=== PATIENT | male | born 1955 | race Caucasian/White ===

== ENCOUNTER 2016-06-18 18:22 | Inpatient (IN) | payer OTHER ==
[~2016-06-18] VITALS: Ht 177.8 cm; Wt 77.2 kg
[2016-06-18 18:45] VITALS: BP 116/87
[2016-06-18 20:00] VITALS: BP 114/74
[2016-06-18] MEDS ORDERED: HEPARIN 5,000 UNITS/ML, 1ML IV ONE (21:00)
[2016-06-18] MEDS ORDERED: WARFARIN 5 MG TABLET PO-COUM ONE (21:00)
[2016-06-18 21:51] LABS: BLOOD UREA NITROGEN 8 mg/dL (7-18)
[2016-06-18 21:56] LABS: IS PT STATUS REG ER OR PRE ER? NO
[2016-06-18 22:14] LABS: ANTI-Xa-UNFRACTIONATED HEP 0.15 IU/mL (0.30-0.70)
[2016-06-18] MEDS: HEPARIN 25,000 UNITS/500ML PMX 500 ML IV SCH (22:48)
[2016-06-19] MEDS: ZOLPIDEM 5MG TABLET PO PRN ×2 (00:03→21:34)
[2016-06-19 02:00] VITALS: BP 110/72
[2016-06-19 05:53] LABS: BLOOD UREA NITROGEN 9 mg/dL (7-18)
[2016-06-19] MEDS ORDERED: APIX5TAB PO (07:38)
[2016-06-19 08:11] VITALS: BP 122/55
[2016-06-19] MEDS: HEPARIN 25,000 UNITS/500ML PMX 500 ML IV SCH ×2 (10:35→22:17)
[2016-06-19] MEDS ORDERED: PNEUMOCOCCAL 23 VACCINE IM-VACC ONE (11:00)
[2016-06-19 14:51] VITALS: BP 110/68
[2016-06-19] MEDS ORDERED: WARFARIN 5 MG TABLET PO-COUM SCH (18:00)
[2016-06-19 19:39] VITALS: BP 102/64
[2016-06-19] MEDS: HYDROcodone/APAP 5/325 TABLET PO PRN (21:34)
[2016-06-20 00:59] VITALS: BP 97/61
[2016-06-20 06:45] VITALS: BP 96/58
[2016-06-20] MEDS ORDERED: OMNIPAQUE 350 MG/ML, 100ML BOTTLE ONE (11:11)
[2016-06-20] MEDS: HEPARIN 25,000 UNITS/500ML PMX 500 ML IV SCH (12:08)
[2016-06-20 12:55] VITALS: BP 111/71
[2016-06-20] MEDS ORDERED: WARFARIN 10 MG TABLET PO-COUM ONE (18:00)
[2016-06-20 19:53] VITALS: BP 116/78
[2016-06-20] MEDS: HYDROcodone/APAP 5/325 TABLET PO PRN (21:20)
[2016-06-20] MEDS: ZOLPIDEM 5MG TABLET PO PRN (21:20)
[2016-06-21] MEDS: HEPARIN 25,000 UNITS/500ML PMX 500 ML IV SCH ×2 (01:04→15:07)
[2016-06-21 01:25] VITALS: BP 95/55
[2016-06-21 06:39] LABS: BLOOD UREA NITROGEN 7 mg/dL (7-18)
[2016-06-21 07:30] VITALS: BP 107/69
[2016-06-21 15:44] VITALS: BP 117/73
[2016-06-21] MEDS ORDERED: WARFARIN 10 MG TABLET PO-COUM ONE (18:00)
[2016-06-21 20:00] VITALS: BP 120/77
[2016-06-21] MEDS: ZOLPIDEM 5MG TABLET PO PRN (20:58)
[2016-06-21] MEDS: HYDROcodone/APAP 5/325 TABLET PO PRN (21:01)
[2016-06-22] MEDS: HEPARIN 25,000 UNITS/500ML PMX 500 ML IV SCH ×2 (02:33→14:50)
[2016-06-22 03:32] VITALS: BP 108/63
[2016-06-22 07:45] VITALS: BP 116/77
[2016-06-22 13:57] VITALS: BP 123/80
[2016-06-22] MEDS ORDERED: WARFARIN 10 MG TABLET PO-COUM ONE (18:00)
[2016-06-22 20:10] VITALS: BP 106/68
[2016-06-22] MEDS: ZOLPIDEM 5MG TABLET PO PRN (21:11)
[2016-06-22] MEDS: HYDROcodone/APAP 5/325 TABLET PO PRN (21:11)
[2016-06-23 01:07] VITALS: BP 101/63
[2016-06-23] MEDS: HEPARIN 25,000 UNITS/500ML PMX 500 ML IV SCH (02:53)
[2016-06-23 07:07] VITALS: BP 107/70
[2016-06-23] MEDS ORDERED: HEPARIN 25,000 UNITS/500ML PMX 500 ML IV SCH (11:20)
[2016-06-23] MEDS ORDERED: WARFARIN 7.5 MG TABLET PO-COUM ONE (13:00)
[2016-06-23 14:15] VITALS: BP 126/79
[2016-06-23 20:00] VITALS: BP 122/79
[2016-06-23] MEDS: HYDROcodone/APAP 5/325 TABLET PO PRN (21:53)
[2016-06-23] MEDS: ZOLPIDEM 5MG TABLET PO PRN (21:54)
[2016-06-24 02:00] VITALS: BP 92/55
[2016-06-24 07:32] VITALS: BP 110/73
[2016-06-24 12:49] VITALS: BP 114/73
[2016-06-24] MEDS ORDERED: WARF5TAB PO (15:20)
== END 2016-06-24 16:26 | disposition home or self-care (01) | DRG 176 ==
LOC: 4NOR 18:22
PROVIDERS: ADMIT Surgery; ATTEND Surgery
DX: I26.99 Other pulmonary embolism without acute cor pulmonale (principal); J98.11 Atelectasis; Z79.01 Long term (current) use of anticoagulants; Z99.81 Dependence on supplemental oxygen; K64.9 Unspecified hemorrhoids
CPT/HCPCS: 36415; 71020; 71275; 80048; 84484; 85025; 85520; 85610; 85730; 90732; 93005; 93306; 93970; J1644; Q9967

== ENCOUNTER 2018-03-26 03:17 | Emergency (ER) | payer OTHER ==
[~2018-03-26] VITALS: Ht 177.8 cm; Wt 86.4 kg
[~2018-03-26 03:17] MED LIST: APIX5TAB PO; WARF5TAB PO
[2018-03-26 03:30] VITALS: BP 138/74
[2018-03-26] MEDS ORDERED: SERT100T32 PO (03:35)
[2018-03-26] MEDS ORDERED: methylPREDNISolone SOD SUCC 125 MG/2 ML IVPush STA (03:37)
--- NOTE | 2018-03-26 03:37 | NUR ---
PT IN GOWN IN [facility]. DR BEY AT BEDSIDE. PT EDUCATED ABOUT POC AND VERBALIZES UNDERSTANDING. CALL LIGHT IS WITHIN REACH. AWAITING NEW MEDICATION ORDERS AT THIS TIME.
--- NOTE | 2018-03-26 03:44 | NUR ---
PT AMBUALATED TO XRAY.
[2018-03-26] MEDS ORDERED: methylPREDNISolone SOD SUCC 125 MG/2 ML ONE (03:50)
[2018-03-26] MEDS ORDERED: DIPHENHYDRAMINE 50 MG/ML, 1ML ONE (03:50)
--- NOTE | 2018-03-26 03:50 | NUR ---
PT BACK FROM [facility]. IV ACCESS ESTABLISHED. PT RESTING IN [facility] AT THIS TIME WITH CALL LIGHT IN REACH. LABS COLLECTED AND SENT TO LAB.
[2018-03-26] MEDS ORDERED: MAALOX/HYOSCYAMINE/LIDOCAINE 45 ML BTL ONE (03:51)
[2018-03-26] MEDS ORDERED: MAALOX/HYOSCYAMINE/LIDOCAINE 45 ML BTL PO ONE (04:00)
[2018-03-26] MEDS ORDERED: DIPHENHYDRAMINE 50 MG/ML, 1ML IVPush ONE (04:00)
[2018-03-26 04:04] LABS: BASOPHILS # (AUTO) 0.04 x10^3/uL (0-0.1); BASOPHILS % (AUTO) 0 % (0-1); EOSINOPHILS # (AUTO) 0.12 x10^3/uL (0-0.4); EOSINOPHILS % (AUTO) 1 % (1-7); LYMPHOCYTES % (AUTO) 16 % (22-44); MD NO; MEAN CORPUSCULAR HEMOGLOBIN 32.8 pg (27.5-34.5); MEAN CORPUSCULAR HGB CONC 34.8 g/dL (33.2-36.2); MEAN CORPUSCULAR VOLUME 94.1 fL (81-97); MEAN PLATELET VOLUME 7.8 fL (7.4-10.4); MONOCYTES # (AUTO) 0.76 x10^3/uL (0.2-0.8); MONOCYTES % (AUTO) 8 % (2-9); NEUTROPHILS # (AUTO) 7.57 x10^3/uL (1.8-6.8); NEUTROPHILS % (AUTO) 75 % (42-75); PLATELET COUNT 223 x10^3/uL (130-400); RED BLOOD COUNT 5.12 x10^6/uL (4.38-5.82); RED CELL DISTRIBUTION WIDTH 12.5 % (9.4-14.8)
[2018-03-26 04:11] LABS: ALBUMIN 3.9 g/dL (3.4-5.0); ANION GAP 10 mmol/L (5-15); CALCIUM 8.8 mg/dL (8.5-10.1); CHLORIDE 110 mmol/L (98-107)
[2018-03-26 04:19] LABS: ALANINE AMINOTRANSFERASE 59 U/L (12-78); ALKALINE PHOSPHATASE 61 U/L (45-117); BILIRUBIN,TOTAL 0.4 mg/dL (0.2-1.0); CREATININE 0.71 mg/dL (0.7-1.3); TOTAL PROTEIN 7.4 g/dL (6.4-8.2); TROPONIN I < 0.015 ng/mL (0.000-0.045)
[2018-03-26] MEDS ORDERED: ACETAMINOPHEN 500 MG TABLET ONE (05:03)
== END 2018-03-26 05:38 | disposition home or self-care (01) ==
LOC: ED 05:15
DX: K21.0 Gastro-esophageal reflux disease with esophagitis (principal); Z86.718 Personal history of other venous thrombosis and embolism
CPT/HCPCS: 36415; 70360; 71045; 80053; 84484; 85025; 96374; 96375; 99284; J1200; J2930